=== PATIENT | male | born 1930 | race Caucasian/White ===

== ENCOUNTER 2017-06-18 17:23 | Inpatient (IN) | payer MEDICARE ==
[~2017-06-18] VITALS: Ht 177.8 cm; Wt 110.2 kg
--- NOTE | ~2017-06-18 | WRIGHTHP ---
[place], [place] PATIENT HISTORY AND PHYSICAL EXAM [id number] #: [id number] ROOM: 309 DOCTOR: AHMET PERAZA MD BIRTHDATE: [birth year] DOS: 06/19/2017 INITIAL PSYCHIATRIC EVALUATION. CHIEF COMPLAINT: "I'm not really certain why they sent me here." HISTORY OF PRESENT ILLNESS: This is an 87-year-old white male who is a resident of The [facility] in [place], [place], which is an assisted living facility. Apparently, the patient has had a significant decline and increased in behaviors over the last several weeks. This culminated recently with him eloping the facility and walking down a very busy highway with his walker. Staff had to intervene in attempt to bring him back. The patient has had a history of episodic behaviors that included extreme mood lability and agitation. At one point, most recently, the patient did enter the kitchen of the facility and began throwing pots and pans wildly in the kitchen area. He has become verbally and physically threatening to others and has been very combative and resistive to care. Family has been concerned about his decline both from a mood lability standpoint and increased depression standpoint. Family notes that he does tend to decompensate significantly with the change in seasons and his behavior has become so problematic that they are also looking for alternative placement for him. PAST MEDICAL HISTORY: Remarkable for benign prostatic hypertrophy, hyperlipidemia, hypertension, hypothyroidism, obesity and vitamin D deficiency. MENTAL STATUS EXAMINATION: This morning, the patient is alert and oriented to person, place and very approximate to time. He was able to recount to me the details leading up to his admission here, but is rather perplexed about the entire process. He does remember receiving information at the facility about me being his psychiatrist. He denies having previous psychiatric intervention. He does, however, report that he is having significant sleep problems with difficulty falling asleep, staying asleep, and dedicated local truck driver awakening. He also endorses anergia, anhedonia, hopeless, helpless feelings and at times crying spells. There is no significant hypomania or manish. There are no auditory or visual hallucinations noted. No delusions were voiced. No paranoia was present. Memory for the most part seems relatively intact with some mild time issues noted. DIAGNOSIS: Major depression, recurrent, rule out with psychotic features. PLAN: I will go ahead and start him on Cymbalta 30 mg at bedtime. He does endorse significant pain issues and states he has had at least 5 back operations that caused him a great deal of distress. He does endorse depressive symptomatology, so this should multitask the depression as well as the pain issues. The patient did enter the hospital on donepezil 5 mg at bedtime. I will discontinue this in lieu of Exelon patch 4.6 mg daily. I will gradually increase this as needed and as tolerated to its maximum dose of 13.3 mg daily. This should help improve and maintain ADLs, behaviors and cognitions. If needed, I will go ahead and augment this with Namenda. I will discuss the case further with the treatment team and manager social responsibility to determine whether or not [place], [place] PATIENT HISTORY AND PHYSICAL EXAM NAME: LUCILLEAHMET Cantrell UNIT #: [id number] ROOM: 309 DOCTOR: AHMET PERAZA MD BIRTHDATE: [birth year] he will return back to [facility] or if an alternative placement is required. We will engage him in individual and payton milieu activity, ultimately discharging then to the least restrictive environment when psychiatrically stable. AHMET PERAZA MD CM:HISPHYS:PATIENT HISTORY AND PHYSICAL EXAMINATION [id number] AHMET PERAZA MD 06/19/17 1049 interface
--- NOTE | ~2017-06-18 | DS ---
[place], [place] DISCHARGE SUMMARY NAME: AHMET ADKINS [facility] #: [id number] UNIT #: [id number] ROOM: 309 DOCTOR: PATRICIA OSWALD BIRTHDATE: [birth year] DOS: 06/20/2017 HISTORY OF PRESENT ILLNESS: He is an 87-year-old male who is a resident of an assisted living in [place]. He began to have a significant decline and an increase in behaviors over several weeks prior to being admission. He did elope from the facility and was walking down a very busy highway with his walker. Staff had to redirect him back to the facility. He did have a history of behaviors at the facility including extreme mood lability and agitation. He did, at one point, enter to the kitchen of facility and started to around. He was verbally and physically threatening to others and combative and resistive to care. Family was concerned about his decline in mood and also an increase in depression. He was sent to [facility] for medication stabilization and to rule out any organic factors. PAST MEDICAL HISTORY: BPH, hyperlipidemia, hypertension, hypothyroidism, obesity and vitamin D deficiency. SUMMARY OF HOSPITAL STAY: His Cymbalta was started at bedtime in order to treat pain that he was complaining of. He stated that he did have five back operations in the past and that he had pain related to that. He also reported that he did have some feelings of depression and the Cymbalta would be helpful for both the pain issues and for the depression. Exelon patch was started in lieu of Aricept and it was to be gradually titrated up to 13.3 in order to improve his ADLs, behavior and cognition. On June 20, he did suffer a fall and it was questionable whether or not he had a hip fracture. Imaging study showed a nondisplaced possible fracture and he was treated for pain until he could be evaluated by medical. Eventually, he was transferred to the medical floor for further treatment for his hip fracture. DISPOSITION: He was transferred to medical to treat his hip fracture. At the time of his discharge to the medical floor, he was alert, oriented to self, perhaps to place, not to time. His mood and affect were appropriate, but he did describe significant amount of pain. Please reconsult as if needed after he is treated medically. [place], [place] DISCHARGE SUMMARY NAME: AHMET ADKINS UNIT #: [id number] ROOM: 309 DOCTOR: PATRICIA OSWALD BIRTHDATE: [birth year] Patricia Oswald NP CM:NII [phone] PATRICIA OSWALD 06/21/172303 interface
--- NOTE | 2017-06-18 16:50 | NUR ---
ADMISSION ORDERS RECIEVED FROM DR. PERAZA TO ADMIT PT TO UNIT WITH DX BRIEF PSYCHOTIC DISORDER. HOME PSYCHIATRIC MEDICATIONS REVIEWED WITH DR. PERAZA, VERBAL ORDERS RECIEVED, READ BACK AND VERIFIED.
--- NOTE | 2017-06-18 17:00 | NUR ---
VERBAL CONSENTS FOR ADMISSION, MEDICATIONS, VISITOR/PHONE CALL RESTRICTIONS (LASHAUN STATES NO RESTRICTIONS, DECLINED TO SET UP A PASSWORD), WOUND/IDENTIFICATION PHOTOGRAPHY OBTAINED VIA TELEPHONE FROM PT'S DAUGHTER/POA LASHAUN GARCIA, WITNESSED BY 2ND RN YANET. COPIES OF POA/LIVING WILL/DNRCC PAPERWORK PROVIDED BY NURSING FACILITY, [facility] AND PLACED ON PT'S CHART. VISITATION POLICY AND RULES OF THE UNIT REVIEWED WITH DAUGHTER LASHAUN.
--- NOTE | 2017-06-18 17:03 | NUR ---
CALLED AND SPOKE TO EWELINA, MEDIA ASSOCIATE AT THE [facility], MADE AWARE DR. PERAZA WILL ADMIT PT, REQUESTED NURSE TO NURSE REPORT BE GIVEN PRIOR TO PT LEAVING THE FACILITY. EWELINA STATES NURSE BUSCH IS PASSING MEDICATIONS AND WILL CALL WITH REPORT WHEN FINISHED.
[2017-06-18] MEDS ORDERED: POTASSIUM CHLO20 ME4 PO (17:41)
[2017-06-18] MEDS ORDERED: OMEPRAZOLE20 M2 PO (17:47)
--- NOTE | 2017-06-18 17:47 | NUR ---
RECIEVED CALL FROM JO-ANN, NURSE AT THE [facility], RECIEVED NURSE TO NURSE REPORT ON PT AHMET ADKINS. JO-ANN STATES PT IS WILLING TO COME, STATES PT STATED "I KNOW I NEED HELP, I'M NOT SAFE." PT'S DAUGHTER AKIL EVANS WILL TRANSPORT PT PER FAMILY'S WISHES. NURSE STATES THEY WILL CALL THE UNIT WHEN PT IS LEAVING.
[2017-06-18] MEDS ORDERED: ALLOPURINOL100 MG PO (17:50)
[2017-06-18] MEDS ORDERED: Synthroid,Levo25 MCG PO (17:50)
[2017-06-18] MEDS ORDERED: VITAMIN D310000 UNI1 PO (17:51)
[2017-06-18] MEDS ORDERED: B121000 MCG/1 IM (17:52)
[2017-06-18] MEDS ORDERED: LASIX40 MG PO (17:53)
[2017-06-18] MEDS ORDERED: COLACE100 MG PO (17:53)
[2017-06-18] MEDS ORDERED: TYLENOL EXTRA500 MG PO (17:57)
[2017-06-18] MEDS ORDERED: DULE1ARO1 INH (17:58)
[2017-06-18] MEDS ORDERED: FLOMAX0.4 MG PO (17:58)
[2017-06-18] MEDS ORDERED: NEURONTIN600 MG PO (17:58)
[2017-06-18] MEDS ORDERED: PAXIL30 M2 PO (17:59)
[2017-06-18] MEDS ORDERED: ARICEPT5 M1 PO (17:59)
[2017-06-18] MEDS ORDERED: COUMADIN3 M1 PO (18:00)
[2017-06-18] MEDS ORDERED: PERCOCET 7.5-31 EACH PO (18:00)
[2017-06-18] MEDS ORDERED: CYCLOBENZAPRINE5 M3 PO (18:01)
[2017-06-18] MEDS ORDERED: NYSTATIN1 EAC5 T (18:01)
[2017-06-18] MEDS ORDERED: GUAIFENESIN600 MG PO (18:02)
[2017-06-18] MEDS ORDERED: DULCOLAX5 M1 PO (18:02)
[2017-06-18] MEDS ORDERED: PROAIR HFA8.5 GM INH (18:04)
[2017-06-18] MEDS ORDERED: SILTUSSIN100 MG/52 PO (18:05)
[2017-06-18] MEDS ORDERED: TOPICORT60 G1 T (18:06)
--- NOTE | 2017-06-18 23:16 | NUR ---
SPOKE WITH POA. REVIEWED ADMISSION PROCESS. POA UPDATED STAFF ON CLIENTS HEALTH AND HABITS. WILL COME IN TOMORROW TO SIGN PAPERS
--- NOTE | 2017-06-19 00:55 | NUR ---
AHMET ADKINS a 87 year old M admitted via stretcher from the ADMITTING as a emergency 72 hr. hold admission. Arrived on unit at 0055AM. ALLERGIES: BACTRIUM. Vital signs are: 97.4-84-16 126/88. CLIENT IS PINK SLIPPED AND UNABLE TO SIGN THE FOLLOWING FORMS with stated understanding: Authorization For The Release of Medical Information, Clothing List, Consent to Voluntary Admission and Hospitalization, Consent and Release Forms/Receipt of Rights, Acknowledgement of Advance Directive Information, Behavioral Health Consent Form, and Informed Consent of Medications. Admitted under the services of Dr. KARMEN DUNCAN,AHMET. A search was conducted and hazardous articles were removed. Client was oriented to the unit. CLIENT DENIES BECOMING COMBATIVE. STATES I AM BORED THERE. THEY MAKE ME SIT ALL THE TIME BECAUSE THEY ARE AFRAID I MIGHT FALL. I LIKE TO BE ACTIVE AND DO THINGS. I EVEN OFFERED TO CUT THE GRASS AND THEY SAID NO. I JUST LIKE TO KEEP BUSY. I DON'T NEED TO BE HERE BUT OK. CLIENT ATE 1/2 SANDWICH, FRUIT, COTTAGE CHEESE, MARK CRACKERS, PEANUT BUTTER, GRAEME SLY. CLIENT GAIT STEADY WITH WALKER. DENIA BROWN
[2017-06-19 01:01] VITALS: BP 126/88
--- NOTE | 2017-06-19 01:20 | NUR ---
DR RODRIGUEZ NOTIFIED OF PTS ADMISSION, & MEDICAL CONSULT. HE STATE TO PUT CONSULT UNDER DR TALITA PANDEY.
--- NOTE | 2017-06-19 01:55 | NUR ---
DR RODRIGUEZ ON UNIT TO SEE PT FOR MEDICAL CONSULT.
[2017-06-19] MEDS ORDERED: LASIX80 MG PO (02:11)
--- NOTE | 2017-06-19 05:13 | NUR ---
NOT SLEEPING WELL. TOO LATE FOR SLEEPING PILL. CLIENT UNDERSTANDING
--- NOTE | 2017-06-19 06:23 | NUR ---
C/O 07/23 NECK AND BACK PAIN. PERCOCET GIVEN PER REQUEST. CLIENT ARGUMENTATIVE THIS MORNING ABOUT HAVING TO BE HERE AND NOT BEING ABLE TO SLEEP. TRIED TO REMIND HIM THAT HE REFUSED THE SLEEPING PILL. CONTINUES TO ARGUE ABOUT BEING HERE AND NOT BELONGING HERE. GETTING DRESSED TO GO TO DINING ROOM.
--- NOTE | 2017-06-19 06:49 | NUR ---
LAB HERE. INFORMED THEM OF NEW LABS ORDERERD FOR THIS MORNING. STATES THEY WILL GET THEM NOW
[2017-06-19 07:58] LABS: INTERNATIONAL NORM RATIO 2.3 (2.0-3.5)
[2017-06-19 08:15] VITALS: BP 116/65
--- NOTE | 2017-06-19 08:30 | NUR ---
DR. PERAZA HERE WITH PT AT THIS TIME.
[2017-06-19 08:33] LABS: VITAMIN D, 25-HYDROXY 47.1 ng/mL (30-100)
--- NOTE | 2017-06-19 09:00 | NUR ---
PT STATED TO MILIEU "I'M HERE TO TALK TO DR. PERAZA SO I CAN GET OUT OF HERE." REMINDED PT HAD JUST MET WITH DR. PERAZA, REASON FOR ADMISSION WAS EXPLAINED TO PT BY THE DOCTOR. PT STATES "OH OKAY."
--- NOTE | 2017-06-19 09:15 | NUR ---
PT STATES TO THIS NURSE "PLEASE MAKE SURE THE DOCTOR MEETS WITH ME." PT REMINDED AGAIN HE HAD MET WITH DR. PERAZA THIS MORNING. PT STATES "WELL IT'S REAL IMPORTANT THAT HE MEETS WITH ME SO I CAN GET OUT OF HERE." AGAIN EXPLAINED TO PT REASON FOR ADMISSION AND THAT DR PERAZA HAD MET WITH HIM AND EXPLAINED THE SAME. PT CONTINUES TO DEMAND TO SEE DR. PERAZA. DR. PERAZA STILL ON UNIT, MET WITH PT AGAIN AND EXPLAINED THE REASON FOR ADMISSION AND MEDICATION CHANGES. PT VERBALIZED UNDERSTANDING BUT STATES "YOU KNOW MY BIG GOAL IS TO GET OUT OF HERE ELISABETH. THIS WAS A MISUNDERSTANDING, I WAS JUST GOING FOR A WALK AND THAT GIRL TOLD HER MOTHER A STORY TO GET ME HERE."
--- NOTE | 2017-06-19 11:00 | NUR ---
Dr. Sanchez requested SW check with [facility] to see if Pt was able to return or if other placement was to be found. Dr. Sanchez stated that Pt had few memory gaps this morning back can turn into a different person in the evening. Dr. Sanchez wants to see how Pt this evening. Pt recalled for Dr. Sanchez when he threw pots and pans in the assisted living's kitchen. SW will contact the [facility] to see what was the plans are.
--- NOTE | 2017-06-19 11:19 | NUR ---
JUN called the [facility] ; spoke with Director Ly. Ly spoke with family Saturday and yesterday about facility not longer able to meet Pt's needs. Pt has been at facility for 3 years. Family in agreement for Pt to be palced in a NH for his safety. Ly will make referrals to Kenneth at [facility], Aurelia at the [facility] and [facility]. JUN will complete the PASRR once Dr. Alvarado's assessment is tuped. Pt was a security director. Pt's brother worked at the [employer]'s office. Ly reports that Family is very nice and works well with the staff to make sure pt's needs are met. Jun will send inforation to these facilities once the reports are typed from the Drs. Ly will let JUN know of the outcome of her calls to these faclities. KATE Ferguson is first but works as RN and 2nd is Nina is readily available by phone.
--- NOTE | 2017-06-19 11:20 | NUR ---
PT'S RIOSTHER/KATE GARCIA ON UNIT, ALL ADMISSION PAPERWORK REVIEWED WITH DAUGHTER AND SIGNATURES OBTAINED. REVIEWED MEDICATIONS WITH DAUGTHER. QUESTIONS ANSWERED. PROVIDED FITTER MECHANIC'S NAME AND PHONE NUMBER TO ASSIST FAMILY WITH PLACEMENT QUESTIONS.
--- NOTE | 2017-06-19 11:40 | NUR ---
PHYSICAL THERAPY PAtient evaluated on 3, full evaluation to follow. PAtient (I) all functional mobility. No PT skills/needs. PAtient is low complexity via chart review, tests and evaluation: 73216. Thak you for this referral. Desi Pineda,PT
--- NOTE | 2017-06-19 11:41 | NUR ---
Trivia/Riddles/Think Fast Patient chooses on of these card,reads it outloud for other patients to guess/answer. Patient was encouraged to join this group but patient refused stating he wasnt well, hed been up all night,he had too many things to think about... AT encouraged and educated patient on the benefits for him to join group such as socializing, helping him focus. Patient continued to refuse all goups. AT will attempt again this afternoon
--- NOTE | 2017-06-19 12:49 | NUR ---
PT IS ALERT AND ORIENTED TO PERSON, PLACE AND TIME. SOME ST MEMORY GAPS NOTED. RESPIRATIONS EASY ON ROOM AIR. MOOD IS DEPRESSED, AFFECT IS FLAT. SPEECH IS WNL AND COHERENT, ABLE TO MAKE NEEDS KNOWN. PT DENIES HALLUCINATIONS, NO RESPONSE TO INTERNAL STIMULI NOTED. PT DENIES SI/HI. NO DELUSIONS OR PARANOIA NOTED. PT IS CALM AND COOPERATIVE WITH STAFF, MEDICATION COMPLIANT, HOWEVER; PT HAS REFUSED GROUP ACTIVITY SESSIONS THIS AM DESPITE ENCOURAGEMENT, THIS NURSE WILL ATTEMPT TO ENGAGE PT IN INDIVIDUAL THERAPY AND CONTINUE TO ENCOURAGE GROUP ATTENDANCE. PT IS GUARDED AND REPEATEDLY STATES TO STAFF "I DON'T NEED TO BE HERE. I WANT TO GO HOME." PT IS AMBULATORY WITH STEADY GAIT, INDEPENDENT WITH ADLS AND TOLIETING. GOOD APPETITE WITH ADEQUATE FLUID INTAKE NOTED. NO DISTRESS. Q15 MIN SAFETY CHECKS MAINTAINED, REFER TO [facility] FLOWSHEET FOR SPECIFIC MONITORING.
--- NOTE | 2017-06-19 14:00 | NUR ---
JULIA JESUS TREAD BOOKER WITH HOSPITALIST GROUP HERE TO SEE PT AT THIS TIME, REVIEWED PT'S PMH INCLUDING DX OF AFIB AND HX OF PE, MADE AWARE OF COUMADIN DOSE 3.5MG FOR TONIGHT AND PT/INR RESULTS FROM THIS AM.
--- NOTE | 2017-06-19 14:31 | NUR ---
Painting/Positive Traits This group consisted of painting an Emoji(4 different faces) suncatcher. Tried to encourage patient x2 to join group. Patient refused,he was tired. Explained to patient what we were doing in group and educated patient on getting out of his room and socializing with other patients and the benifits for him doing this. Patient still refused.
[2017-06-19 16:00] VITALS: BP 136/84
--- NOTE | 2017-06-19 17:35 | NUR ---
1600 - THIS NURSE AND HOGSHEAD PRESS OPERATOR SREE IN QUIET ROOM COMPLETING DISCHARGE INSTRUCTIONS WITH ANOTHER PATIENT WHEN A LOUD "THUD" WAS HEARD FROM THE NEXT ROOM OVER. THIS NURSE, JUN BALBUENA, RN MEGHNA AND FERN SIDDIQUI IMMEDIATELY RESPONDED TO ROOM 309-1. UPON ENTRANCE TO THE ROOM, BATHROOM DOOR WAS OBSERVED TO BE CLOSED AND THIS PT'S HAND COULD BE SEEN UNDER THE DOOR. UPON OPENING THE DOOR PT WAS OBSERVED TO BE LAYING ON HIS RIGHT SIDE, RIGHT SHOULDER UNDER HIS TORSO, PT HOLDING HIS HEAD UP OFF THE FLOOR. PT NOTED TO BE UNDRESSED FROM THE WAIST DOWN, STATES "I WENT TO THE BATHROOM AND I SPILLED ON THE FLOOR. I GOT UP AND TRIED TO CLEAN IT UP AND I SLIPPED." PT C/O NECK AND BACK PAIN, ADMITS TO HITTING HEAD, ALERT AND ORIENTED X4 PER PT'S BASELINE. PERRLA. SPEECH WNL AND PER PT'S BASELINE. PT DENIES FEELING DIZZY PRIOR TO THE FALL. VITALS OBTAINED AT THIS TIME, 97.4-94-22-136/84-97% ROOM AIR. APARTMENT MAINTENANCE RADHA ON UNIT, DIRECTED MULE OPERATOR MARIZOL TO ALERT THE HOSPITALIST TEAM. MEGHNA RN STAYED WITH PT WHILE THIS NURSE COMMUNICATED WITH MULE OPERATOR TO ENSURE HOSPITALIST TEAM WOULD BE COMING TO ASSESS PT PRIOR TO MOVING THE PATIENT. 1605 - DR. VAZQUEZ ON UNIT AND ASSESSING PT. ORDERS FOR CERVICAL COLLAR TO BE APPLIED AND STAT CT STUDIES OF HEAD AND CERVICAL SPINE. STATES NOT TO MOVE THE PT UNTIL COLLAR IS APPLIED. CALL PLACED TO ER AND LEARNING SUPPORT AIDE DONALD TO MAKE AWARE AND REQUEST COLLAR BE BROUGHT TO THE UNIT. 1610 - DR. NUNEZ AND DR. COMER ON UNIT AND ASSESSING PT. 1613 - DR. SCOTT ON UNIT AND ASSESSING PATIENT. MADE AWARE PT HAS A HX OF PREVIOUS BACK SURGERIES. 1620 - INDRA, NURSING LEARNING SUPPORT AIDE ON UNIT WITH CERVICAL COLLAR FROM ER. DR. SCOTT REQUESTS BACK BOARD, ARTUR SHIRLEY OFF UNIT AT THIS TIME TO OBTAIN STRETCHER AND BACK BOARD FROM ER. 1625 - BACK BOARD AND STRETCHER ARRIVED ON UNIT WITH MILIEU AND POLICY AND PLANNING MANAGER. DR. SCOTT AND RESIDENTS APPLIED CERVICAL COLLAR AND BACK BOARD AT THIS TIME, NURSING LEARNING SUPPORT AIDE, THIS RN AND POLICY AND PLANNING MANAGER ASSISTED TEAM PT WAS LIFTED USING BACK BOARD ONTO STRETCHER FOR TRANSPORT TO RADIOLOGY. 1645 - PT OFF UNIT AT THIS TIME TO RADIOLOGY FOR CT SCANS, ESCORTED BY HOSPITALIST TEAM DOCTORS. 1650 - CALL PLACED BY THIS NURSE TO PT'S DAUGHTER/KATE GARCIA TO MAKE AWARE OF THE ABOVE. MADE AWARE CT IS BEING DONE AT THIS TIME AND STAFF WILL NOTIFY OF RESULTS. DAUGHTER VERBALIZED UNDERSTANDING, STATED THANK YOU FOR THE CALL. 1700 - PT BACK ON UNIT AT THIS TIME ESCORTED BY DR. VAZQUEZ AND DR. COMER, WHO STATE TO LEAVE PT POSITIONED ON BACK BOARD WITH CERVICAL COLLAR IN PLACE UNTIL FURTHER ORDERS ARE RECIEVED PENDING RESULTS OF THE CT SCANS. DR. VAZQUEZ STATES THEY WILL RETURN TO THE UNIT SHORTLY. THIS NURSE REMAINS WITH PT 1:1 AT THIS TIME TO ENSURE IMMOBILIZATION OF SPINE AND SAFETY.
--- NOTE | 2017-06-19 18:06 | NUR ---
SHIFT CHART CHECK COMPLETED.
--- NOTE | 2017-06-19 18:20 | NUR ---
DR. VAZQUEZ ON UNIT, AFTER REVIEW OF CT OF HEAD AND SPINE, BOTH RESULTS ARE NEGATIVE, DR. VAZQUEZ CAME TO UNIT, ASSISTED THIS NURSE IN REMOVING CERVICAL COLLAR AND BACK BRACE. DR. VAZQUEZ FURTHER ASSESSED PT'S C/O PAIN AND RANGE OF MOTION. STATES TO LEAVE PT ON GOURNEY HE WILL BE ORDERING MORE XRAYS. DR. VAZQUEZ STATES OK TO GIVE ROUTINELY SCHEDULED DOSE OF COUMADIN AND PRN PERCOCET. WITNESSED BY 2ND RN MEGHNA.
--- NOTE | 2017-06-19 18:24 | NUR ---
PRN PERCOCET 7.5-325 ONE TAB PO GIVEN AT THIS TIME FOR C/O NECK, BACK AND SHOULDER PAIN RATED LEVEL 10/10 ON PAIN SCALE. ROUTINELY ORDERED COUMADIN GIVEN AT THIS TIME WELL.
--- NOTE | 2017-06-19 18:24 | NUR ---
VM from [facility]/KATE Wood introducing herself and will answer any questions SW has regardin placement or Pt.
--- NOTE | 2017-06-19 18:26 | NUR ---
JUN received call from Ly Santoyo at [facility] that that she received calls back from Aurelia at the [facility] that are interested in Pt and have male beds. Ly will be ntoifiying family and giving information so family can tour facilities. JUN informed Ly that Pt had fallen in beathroom and was receiving xrays. Pt was trying to pick up attendant a paper towel that he dropped and fall hitting head on door frame to bathroom.
--- NOTE | 2017-06-19 18:30 | NUR ---
CALL PLACED TO PT'S DAUGHTER/POA LASHAUN LUCASKYLEE TO MAKE AWARE OF NEGATIVE CT RESULTS. ALSO MADE AWARE DR. VAZQUEZ ORDERED FURTHER XRAYS, POA VERBALIZED UNDERSTANDING.
--- NOTE | 2017-06-19 18:38 | NUR ---
ESCORT ON UNIT AT THIS TIME TO TAKE PT TO RADIOLOGY. TICKET TO RIDE SENT WITH PT.
--- NOTE | 2017-06-19 19:18 | NUR ---
FALL RISK ASSESSMENT COMPLETED S/P FALL, UPDATED CARE PLAN, FALLING STAR PLACED ON DOOR, PT WEARING YELLOW SOCKS AND YELLOW ARM BAND.
--- NOTE | 2017-06-19 21:01 | NUR ---
RESIDENT EXCHANGE ENGINEER PHONE NUMBER CALLED REGARDING CLIENT XRAY TO RIGHT HIP. NO ANSWER AT THIS TIME
--- NOTE | 2017-06-19 21:08 | NUR ---
HOSPITALIST # PHONE CALLED. DR. DEL ANGEL ANSWERED CALL. DR. DEL ANGEL UPDATED ABOUT XRAY OF RIGHT HIP. DR. DEL ANGEL WITH ORDER TO CONSULT DR. DAWSON, ORTHOPEDIC.
--- NOTE | 2017-06-19 21:13 | NUR ---
DR. DAWSON CALLED FOR CONSULT OF CLIENT. THIS NURSE REACHED ANSWERING SERVICE. THIS NURSE UPDATED ANSWERING SERVICE WITH CLIENT XRAY OF RIGHT HIP AND ORDER FROM DR. DEL ANGEL TO CONSULT DR. DAWSON. ANSWERING SERVICE LET THIS NURSE KNOW THAT DR. DAWSON WILL BE CONSULTED AND IF UNABLE TO SEE PATIENT MALINDA WILL SEE PATIENT IN THE MORNING
--- NOTE | 2017-06-19 22:33 | NUR ---
THIS NURSE ATTEMPTED TO CALL LYSSA ORNELAS WITH NO ANSWER. THIS NURSE CALLED DAUGHTER AKIL. DAUGHTERAKIL IS AWARE OF XRAY RESULTS AND CONSULT WITH DR. DAWSON. DAUGHTERAKIL STATED "THANK YOU FOR CALLING AND I WILL UPDATE THE REST OF MY FAMILY".
[2017-06-19 22:57] VITALS: BP 128/80
--- NOTE | 2017-06-20 01:15 | NUR ---
PATIENT WITH COMPLAINT OF BACK PAIN. MEDICATED WITH WITH PERCOCET WITH EFFECTIVE RESULTS
--- NOTE | 2017-06-20 02:19 | NUR ---
24 HR chart check completed.
--- NOTE | 2017-06-20 05:28 | NUR ---
B:AGGRESSION, COMBATIVE BEHAVIOR I: THERAPEUTIC COMMUNICATION, 1:1 R: I DON'T WANT TO BE HERE P: HELP TO FIND COPING SKILLS TO DECREASE AGGRESSION, COMPLY WITH MEDICATIONS, PARTICIPATE IN GROUPS
--- NOTE | 2017-06-20 06:33 | NUR ---
PATIENT SLEPT > 7 HOURS. TURNED AND REPOSITIONED SELF FOR PRESSURE RELIEF AND COMFORT
[2017-06-20 07:43] VITALS: BP 143/70
--- NOTE | 2017-06-20 07:45 | NUR ---
RECIEVED CALL FROM PT'S DAUGHTER AKIL EVANS, AKIL PROVIDED HER CELL PHONE NUMBER, REQUESTS FOR AKIL TO BE THE FIRST CONTACT HER SISTER LASHAUN WORKS IN A DENTAL OFFICE AND WILL BE UNAVAILABLE TO TAKE PHONE CALLS THROUGHOUT THE DAY.
[2017-06-20 07:50] LABS: BASO % 0.6 % (0.0-1.0); EOS # 0.1 10*3/uL (0.0-0.4); EOS % 1.6 % (1.0-4.0); HEMATOCRIT 39.4 % (42.0-52.0); HEMOGLOBIN 13.4 g/dl (14.0-18.0); LYMPH # 1.6 10*3/uL (1.3-4.4); LYMPH % 32.1 % (27.0-41.0); MEAN CELL VOLUME 103.1 fl (80.0-94.0); MEAN CORPUSCULAR HGB 35.1 pg (27.0-31.0); MEAN PLATELET VOLUME 10.6 fl (9.6-12.3); MONO # 0.4 10*3/uL (0.1-1.0); MONO % 7.1 % (3.0-9.0); NEUT % 58.4 % (47.0-73.0); PLATELET COUNT AUTOMATED 136 10*3/uL (130-400); RED BLOOD COUNT 3.82 10*6/uL (4.50-5.90); RED CELL DISTRI WIDTH 12.9 % (0-14.5); WHITE BLOOD COUNT 5.1 10*3/uL (4.8-10.8)
[2017-06-20 08:19] LABS: INTERNATIONAL NORM RATIO 2.4 (2.0-3.5)
[2017-06-20 08:20] LABS: ALBUMIN 3.2 gm/dl (3.1-4.5); ALKALINE PHOSPHATASE 155 U/L (45-117); BUN 13 mg/dl (7-24); CHLORIDE 104 mmol/L (98-107); CHOLESTEROL 168 mg/dL (<200); CREATININE 1.07 mg/dL (0.70-1.30); HDL CHOLESTEROL 38 mg/dl (40-60); LDL CHOLESTEROL 89 mg/dL (9-159); POTASSIUM 4.1 mmol/L (3.5-5.1); SGOT/AST 38 IU/L (3-35); SGPT/ALT 32 U/L (12-78); SODIUM 143 mmol/L (136-145); TOTAL PROTEIN 6.9 gm/dL (6.4-8.2); TRIGLYCERIDES 204 mg/dl (<150); VLDL CHOLESTEROL 41 mg/dL (6-40)
--- NOTE | 2017-06-20 08:38 | NUR ---
RECIEVED CALL FROM DR. DAWSON'S OFFICE THIS AM STATING THEY RECIEVED CONSULT VIA ANSWERING SERVICE LAST EVENING BUT STATE DR. DAWSON IS OUT OF THE OFFICE FOR THE WEEK WITH NO ALTERNATE COVERAGE AVAILABLE. CALL PLACED TO [phone], SPOKE TO DR. NUNEZ, MADE AWARE OF XRAY RESULTS AND THAT DR. DAWSON IS OUT OF THE OFFICE. STATES HE WILL DISCUSS WITH DR. SCOTT.
--- NOTE | 2017-06-20 09:40 | NUR ---
RECIEVED CALL FROM DR. DUFFY QUESTIONING IF PT HAS A PACEMAKER, PER PT'S CHART, NO DOCUMENTED PACEMAKER NOTED, PT DENIES HAVING PACEMAKER. CALL PLACED TO PT'S POA/GAUDENCIO EVANS WHO STATES "NO HE DOES NOT HAVE A PACEMAKER." DR. DUFFY MADE AWARE. MRI ORDER RECIEVED. GAUDENCIO BARNARD AWARE OF NEW ORDER FOR MRI. PT IN BED AT THIS TIME, GIVEN PORTABLE CALL CARROLL, CALL CARROLL AND FLUIDS WITHIN REACH, BED ALARM IN PLACE AND AUDIBLE.
--- NOTE | 2017-06-20 10:59 | NUR ---
RECIEVED RADIOLOGY MRI PROCEDURE PRE-SCREENING FORM, QUESTIONARE WAS COMPLETED VIA TELEPHONE WITH PT'S RIOSTHER/BEN EVANS AND FAXED TO RADIOLOGY AT THIS TIME.
--- NOTE | 2017-06-20 12:08 | NUR ---
DR. SCOTT, DR. NUNEZ, DR. VAZQUEZ AND MEDICAL STUDENT ON UNIT TO SEE PT AT THIS TIME. MADE AWARE WE ARE AWAITING MRI TO BE DONE.
--- NOTE | 2017-06-20 12:30 | NUR ---
CALL PLACED TO MRI, SPOKE TO YUVAL, STATES THEY WILL BE UP TO GET PT FOR MRI AROUND 1PM.
--- NOTE | 2017-06-20 13:06 | NUR ---
PT IS ALERT AND ORIENTED TO PERSON, PLACE, APPROXIMATE TIME. SOME ST/LT MEMORY DEFICITS NOTED AT TIMES. RESPIRATIONS EASY ON ROOM AIR. MOOD IS DEPRESSED, AFFECT IS FLAT. SPEECH IS WNL AND COHERENT, ABLE TO MAKE NEEDS KNOWN. PORTABLE CALL CARROLL PROVIDED AND IS IN REACH OF PATIENT. PATIENT DEMONSTRATED ABILITY TO USE CALL CARROLL. ENCOURAGED TO USE CALL CARROLL FOR ASSISTANCE PRIOR TO ATTMEPTING TO GET OOB. PT VERBALIZED UNDERSTANDING. BED ALARM IN PLACE, ACTIVE AND AUDIBLE. PT REMAINS IN BED AWAITING MRI RESULTS. FAMILY UPDATED. PT DENIES HALLUCINATIONS, NO RESPONSE TO INTERNAL STIMULI NOTED. PT DENIES SI/HI. NO PARANOIA/DELUSIONS NOTED. MEDICATION COMPLIANT WITHOUT DIFFICULTY. PT BEING MEDICATED WITH PRN PERCOCET Q6H PRN PT WAS TAKING AT HOME FOR C/O BACK AND SHOULDER PAIN, PT STATES "I FEEL LIKE I GOT HIT BY A 2X4." DR. SCOTT AWARE OF PT'S C/O PAIN AND STATES TO CONTINUE PRN PERCOCET ORDERED WHILE WE AWAIT MRI RESULTS. STAFF ASSISTANCE PROVIDED FOR ADLS, FEEDS SELF, DISPLAYS GOOD APPETITE WITH ADEQUATE FLUID INTAKE. NO DISTRESS NOTED. Q15 MIN SAFETY CHECKS MAINTAINED, REFER TO [facility] FLOWSHEET FOR SPECIFIC MONITORING.
--- NOTE | 2017-06-20 13:23 | NUR ---
PT ASSISTED TO [facility]AVI WITH ASSISTANCE OF MRI TECHS, ESCORT SERVICE, THIS NURSE AND JUN BALBUENA AND IS BEING ESCORTED TO MRI AT THIS TIME WITH TICKET TO RIDE.
--- NOTE | 2017-06-20 14:30 | NUR ---
PT RETURNED FROM MRI WITHOUT INCIDENT. ASSISTED BACK TO BED, BED LINENS CHANGED AND HYGIENE CARE PROVIDED.
--- NOTE | 2017-06-20 15:44 | NUR ---
CALL PLACED TO [phone], SPOKE TO DR. NUNEZ, MADE AWARE OF MRI RESULTS.
--- NOTE | 2017-06-20 16:15 | NUR ---
RECIEVED CALL FROM DR. VAZQUEZ STATING PT WILL NEED TO BE TRANSFERED OUT TO [facility] D/T MRI RESULT. CALL PLACED TO RADHA GROUNDING ENGINEER TO MAKE AWARE, JAYLENE BARAHONA MADE AWARE.
--- NOTE | 2017-06-20 16:20 | NUR ---
CALL PLACED TO PT'S RIOSTHER/KATE EVANS TO MAKE AWARE OF HOSPITALIST'S TEAM'S RECOMMENDATION TO TRANSFER PT TO [facility] FOR [facility]THOPA[facility] TREATMENT. GAUDENCIO STATES SHE WILL DISCUSS WITH PT'S OTHER RIOSTHER/KATE GARCIA.
--- NOTE | 2017-06-20 16:30 | NUR ---
RECIEVED CALL FROM DR. VAZQUEZ WHO STATES AN OUT OF FACILITY TRANSFER IS NO LONGER NEEDED AT THIS TIME DR. DAWSON WILL BE RETURNING EARLY TO TREAT THIS PATIENT TOMORROW. DR. VAZQUEZ STATES HE WILL BE TRANSFERRED TO THE MEDICAL FLOOR WITH DIAGNOSIS INTERTROCHANTER FRACTURE UNDER THE SERVICES OF DR. SCOTT. CALLS PLACED TO RADHA PEST CONTROLLER, [facility] MANNEQUIN WIG MAKER, DR. PERAZA AND PT'S DAUGHTER AKIL EVANS TO MAKE AWARE.
--- NOTE | 2017-06-20 16:39 | NUR ---
CALL PLACED TO [phone], SPOKE TO DR. NUNEZ, [facility] TO HOLD COUMADIN TONIGHT.
[2017-06-20] MEDS ORDERED: DULOXETINE HCL30 MG PO (16:55)
[2017-06-20] MEDS ORDERED: RIVASTIGMINE1 EACH T (16:55)
[2017-06-20] MEDS ORDERED: NAMENDA-5 PO (16:55)
[2017-06-20] MEDS ORDERED: LACTULOSE20 GM/30 M PO (16:55)
[2017-06-20] MEDS ORDERED: PALIPERIDONE ER3 MG PO (16:55)
--- NOTE | 2017-06-20 17:18 | NUR ---
PT DISCHARGED AT THIS TIME TO [facility] 5TH FLOOR ROOM 508-2 WITH DX INTERTROCHANTERIC FRACTURE OF THE RIGHT FEMUR UNDER THE SERVICES OF DR. SCOTT. PT WAS ESCORTED TO 5TH FLOOR VIA BED BY THIS NURSE AND JUN THEODORE. ALL DISCHARGE INSTRUCTIONS AND MEDICATION LIST PROVIDED TO 5TH FLOOR. DNRCC AND POA PAPERWORK PROVIDED TO 5TH FLOOR. NURSE TO NURSE REPORT GIVEN TO [facility] NURSE ON 5TH FLOOR PRIOR TO TRANSFER. ALL PERSONAL BELONGINGS WERE SENT WITH THE PATIENT. PT IN STABLE CONDITION AT TIME OF TRANSFER, IN GOOD SPIRITS, JOKING WITH STAFF.
--- NOTE | 2017-06-20 17:39 | NUR ---
Pt discharged to medical floor due to fracture of right hip. Discharge papers will be sent to [facility].
[2017-06-24 08:06] LABS: NEURONTIN (GABAPENTIN) 8.6 ug/mL (4.0-16.0)
== END 2017-06-20 17:00 | disposition short-term general hospital (02) | DRG 885 ==
LOC: 3N 17:23
PROVIDERS: Hospitalist; Internal Medicine; Registered Nurse; ADMIT Psychiatry & Neurology Psychiatry
DX: F33.9 Major depressive disorder, recurrent, unspecified (principal); I48.0 Paroxysmal atrial fibrillation; N40.0 Benign prostatic hyperplasia without lower urinary tract symptoms; E78.5 Hyperlipidemia, unspecified; I10 Essential (primary) hypertension; E03.9 Hypothyroidism, unspecified; E66.9 Obesity, unspecified; W18.30XA Fall on same level, unspecified, initial encounter; E55.9 Vitamin D deficiency, unspecified; Z68.33 Body mass index [BMI] 33.0-33.9, adult; Z79.01 Long term (current) use of anticoagulants; Z86.711 Personal history of pulmonary embolism; Z88.2 Allergy status to sulfonamides; Z88.8 Allergy status to other drugs, medicaments and biological substances; Z79.899 Other long term (current) drug therapy; Y93.89 Activity, other specified; Y92.89 Other specified places as the place of occurrence of the external cause; Y99.8 Other external cause status

== ENCOUNTER 2017-06-20 17:18 | Inpatient (IN) | payer MEDICARE ==
[~2017-06-20] VITALS: Ht 180.3 cm; Wt 108.9 kg
--- NOTE | ~2017-06-20 | O ---
[place], [place] OPERATIVE NOTE NAME: AHMET ADKINS [facility] #: [id number] UNIT #: [id number] ROOM: 508 DOCTOR: BRADY TAN DO BIRTHDATE: [birth year] DOS: 06/21/2017 PREOPERATIVE DIAGNOSIS: Right hip intertrochanteric fracture. POSTOPERATIVE DIAGNOSIS: Right hip intertrochanteric fracture. PROCEDURE: Trochanteric nail fixation of the right hip intertrochanteric fracture. SURGEON: Brady Tan DO. GENERAL SCRAP WORKER: Jem. SECOND BACKER UP: Jacobo, ANESTHESIA: Quinones, SUSHI CHEF, spinal. INDICATIONS: The patient is an 87-year-old male who is reported to have had an unwitnessed fall on 06/20/2017. MRI indicated a nondisplaced intratrochanteric fracture of the right hip. The patient had pain and inability to ambulate. The risks and benefits of the procedure were explained to the patient's daughter who is his power of litigation attorney associate. Preoperative labs and x-rays were obtained including preoperative medical clearance. The patient is noted to routinely take Coumadin and this was discontinued. He has been receiving FFP to obtain an acceptable PT/INR. PROCEDURE IN DETAIL: The right hip was marked. The patient was brought to the operative suite. A spinal anesthetic was performed by Anesthesia. The patient was placed supine on the fracture table. The patient received Ancef 2 grams IV piggyback. The C-arm was utilized to evaluate the fracture site in multiple planes. The right lower extremity was prepped and draped in the usual orthopedic fashion. A timeout was performed. The greater trochanter was identified and proximal to this area, the incision was made longitudinally. Self-retaining retractors were utilized. Electrocautery was used to maintain hemostasis. The adipose tissue was spread down to the level of the fascia. The fascia was divided in a longitudinal fashion. The greater trochanter was palpated and entered with a partially threaded K-wire. This was adjusted to an appropriate position in both an AP and lateral position. The soft tissue protector and the initial 17.5 mm reamer was placed over the K-wire. This was advanced to the level of the lesser trochanter. The instrumentation was removed. The #11 trochanteric nail was used to enter the site. This was noted to have difficulty advancing. A ball-tip guidewire was placed and initial reaming was performed. This was removed and the 11 x 130 degree angle x 170 mm length TFN troch nail was placed through the greater trochanter and passed the fracture site. The positioning was evaluated under C-arm in multiple planes. When this was found to be adequate, the cannula system was placed at a 130 degree angle for the helical blade. The skin was injected with Marcaine 0.5% with epinephrine. A longitudinal incision was made. Subcutaneous tissue was spread down to the level of the bone. The cannulas were advanced to the bone. The partially threaded K-wire was placed through the cannulated system and [place], [place] OPERATIVE NOTE NAME: LUCILLEAHMET Cantrell Óscar UNIT #: [id number] ROOM: [facility] DOCTOR: BRADY TAN DO BIRTHDATE: [birth year] advanced through the neck and into the head of the femur. The positioning was evaluated under C-arm in multiple planes. When this was found to be adequate, the length was measured. The reamer was set at 100 and advanced over the guidewire. This was followed by placement of a 100 mm length, T1 helical blade, which was advanced into position. This was evaluated under C-arm in multiple planes. The set screw was tightened proximally. The cannulated system was removed. The triple cannulated system was advanced through the appropriate guide hole to lock the clement distally. Skin was injected with Marcaine. The same incision was used as for the helical blade. The skin section of the soft tissue was spread down to bone. The cannulas were advanced to the bone. A calibrated drill was placed from lateral to medial through this cannulated system. The length was measured. A 40 mm 5.0 mm distal locking screw was placed from lateral to medial through the trochanteric nail. All positions were evaluated under C-arm at the lag screw fracture site and the distal locking screw. When this was found to be adequate, the guide system was removed. Final x-rays were obtained. The wounds were copiously irrigated with normal saline. These were closed in a layered fashion with 0 Vicryl followed by 2-0 Vicryl followed by skin luis. The incisions were again injected with Marcaine 0.25% with epinephrine. Xeroform, 4 x 4's, ABDs and Tegaderm were applied to cover the wound. The patient was returned to a supine position. The patient was taken to recovery room in satisfactory condition. SPONGE AND NEEDLE COUNT: Correct. ESTIMATED BLOOD LOSS: 200 mL. SPECIMENS: None. DRAINS: None. PACKING: None. IMPLANTS: Synthes T1, TFN nail 11 mm x 130 degrees x 170 mm. A 0.5 x 40 mm distal locking screw. An 11 mm x 100 mm T1 helical blade. FINDINGS: Nondisplaced intertrochanteric fracture, right hip. COMPLICATIONS: None. [place], [place] OPERATIVE NOTE NAME: AHMET ADKINS UNIT #: [id number] ROOM: 508 DOCTOR: BRADY TAN DO BIRTHDATE: [birth year] BRADY TAN DO CM:OPRECORD:OPERATIVE NOTE [id number] BRADY TAN DO 06/22/17 1416 interface
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
[~2017-06-20 17:18] MED LIST: ALLOPURINOL100 MG PO; ARICEPT5 M1 PO; B121000 MCG/1 IM; COLACE100 MG PO; COUMADIN3 M1 PO; CYCLOBENZAPRINE5 M3 PO; DULCOLAX5 M1 PO; DULE1ARO1 INH; DULOXETINE HCL30 MG PO; FLOMAX0.4 MG PO; GUAIFENESIN600 MG PO; LACTULOSE20 GM/30 M PO; LASIX40 MG PO; LASIX80 MG PO; NAMENDA-5 PO; NEURONTIN600 MG PO; NYSTATIN1 EAC5 T; OMEPRAZOLE20 M2 PO; PALIPERIDONE ER3 MG PO; PAXIL30 M2 PO; PERCOCET 7.5-31 EACH PO; POTASSIUM CHLO20 ME4 PO; PROAIR HFA8.5 GM INH; RIVASTIGMINE1 EACH T; SILTUSSIN100 MG/52 PO; Synthroid,Levo25 MCG PO; TOPICORT60 G1 T; TYLENOL EXTRA500 MG PO; VITAMIN D310000 UNI1 PO
[2017-06-20 17:30] VITALS: BP 109/71
[2017-06-20 20:45] VITALS: BP 138/72
[2017-06-20 21:00] VITALS: BP 138/80
[2017-06-20 21:30] VITALS: BP 140/74
[2017-06-21] VITALS (12 sets, daily range): BP systolic 116–174; BP diastolic 67–83
[2017-06-21 06:17] LABS: BASO % 0.4 % (0.0-1.0); EOS # 0.1 10*3/uL (0.0-0.4); EOS % 2.2 % (1.0-4.0); HEMATOCRIT 36.5 % (42.0-52.0); HEMOGLOBIN 12.3 g/dl (14.0-18.0); LYMPH # 1.2 10*3/uL (1.3-4.4); LYMPH % 25.6 % (27.0-41.0); MEAN CELL VOLUME 105.2 fl (80.0-94.0); MEAN CORPUSCULAR HGB 35.4 pg (27.0-31.0); MEAN CORPUSCULAR HGB CONC 33.7 g/dl (33.0-37.0); MEAN PLATELET VOLUME 10.7 fl (9.6-12.3); MONO # 0.3 10*3/uL (0.1-1.0); MONO % 6.5 % (3.0-9.0); NEUT % 65.1 % (47.0-73.0); PLATELET COUNT AUTOMATED 124 10*3/uL (130-400); RED BLOOD COUNT 3.47 10*6/uL (4.50-5.90); RED CELL DISTRI WIDTH 12.9 % (0-14.5); WHITE BLOOD COUNT 4.6 10*3/uL (4.8-10.8)
[2017-06-21 06:45] LABS: ALKALINE PHOSPHATASE 135 U/L (45-117); BUN 13 mg/dl (7-24); CHLORIDE 104 mmol/L (98-107); CREATININE 0.96 mg/dL (0.70-1.30); FREE T4 0.92 ng/dl (0.76-1.46); PHOSPHOROUS 2.8 mg/dL (2.5-4.9); POTASSIUM 3.4 mmol/L (3.5-5.1); SGOT/AST 32 IU/L (3-35); SGPT/ALT 30 U/L (12-78); SODIUM 142 mmol/L (136-145); TOTAL PROTEIN 6.5 gm/dL (6.4-8.2)
[2017-06-21 06:46] LABS: ACT PARTIAL THROMBO TIME 32.6 SECONDS (20.8-31.5); INTERNATIONAL NORM RATIO 1.9 (2.0-3.5)
[2017-06-21 11:38] LABS: INTERNATIONAL NORM RATIO 1.6 (2.0-3.5)
[2017-06-21 13:47] LABS: INTERNATIONAL NORM RATIO 1.5 (2.0-3.5)
[2017-06-22] VITALS: BP 125/78
[2017-06-22 07:31] LABS: CHLORIDE 108 mmol/L (98-107); POTASSIUM 3.6 mmol/L (3.5-5.1); SODIUM 142 mmol/L (136-145)
[2017-06-22 07:37] LABS: ALBUMIN 2.7 gm/dl (3.1-4.5); ALKALINE PHOSPHATASE 146 U/L (45-117); BUN 14 mg/dl (7-24); CREATININE 0.82 mg/dL (0.70-1.30); SGOT/AST 31 IU/L (3-35); SGPT/ALT 25 U/L (12-78); TOTAL PROTEIN 6.3 gm/dL (6.4-8.2)
[2017-06-22 07:50] LABS: BASO % 0.3 % (0.0-1.0); EOS # 0.1 10*3/uL (0.0-0.4); HEMATOCRIT 33.9 % (42.0-52.0); HEMOGLOBIN 11.5 g/dl (14.0-18.0); LYMPH # 1.1 10*3/uL (1.3-4.4); MEAN CELL VOLUME 102.7 fl (80.0-94.0); MEAN CORPUSCULAR HGB 34.8 pg (27.0-31.0); MEAN CORPUSCULAR HGB CONC 33.9 g/dl (33.0-37.0); MEAN PLATELET VOLUME 11.3 fl (9.6-12.3); MONO # 0.6 10*3/uL (0.1-1.0); MONO % 9.6 % (3.0-9.0); NEUT % 69.9 % (47.0-73.0); PLATELET COUNT AUTOMATED 122 10*3/uL (130-400); RED CELL DISTRI WIDTH 12.5 % (0-14.5); WHITE BLOOD COUNT 5.8 10*3/uL (4.8-10.8)
[2017-06-22 07:56] LABS: INTERNATIONAL NORM RATIO 1.3 (2.0-3.5)
[2017-06-22 08:00] VITALS: BP 135/74
[2017-06-22 12:00] VITALS: BP 130/80
[2017-06-22 16:00] VITALS: BP 158/99
[2017-06-22 18:00] VITALS: BP 152/82
[2017-06-22 20:00] VITALS: BP 153/88
[2017-06-23] VITALS: BP 122/84
[2017-06-23 06:51] LABS: BASO % 0.3 % (0.0-1.0); EOS % 0.1 % (1.0-4.0); HEMATOCRIT 37.1 % (42.0-52.0); HEMOGLOBIN 12.7 g/dl (14.0-18.0); LYMPH # 0.8 10*3/uL (1.3-4.4); LYMPH % 10.5 % (27.0-41.0); MEAN CELL VOLUME 102.5 fl (80.0-94.0); MEAN CORPUSCULAR HGB 35.1 pg (27.0-31.0); MEAN CORPUSCULAR HGB CONC 34.2 g/dl (33.0-37.0); MEAN PLATELET VOLUME 10.9 fl (9.6-12.3); MONO # 0.6 10*3/uL (0.1-1.0); MONO % 8.4 % (3.0-9.0); NEUT % 80.4 % (47.0-73.0); PLATELET COUNT AUTOMATED 140 10*3/uL (130-400); RED BLOOD COUNT 3.62 10*6/uL (4.50-5.90); RED CELL DISTRI WIDTH 12.6 % (0-14.5); WHITE BLOOD COUNT 7.5 10*3/uL (4.8-10.8)
[2017-06-23 06:57] LABS: INTERNATIONAL NORM RATIO 1.2 (2.0-3.5)
[2017-06-23 07:05] LABS: BUN 18 mg/dl (7-24); CHLORIDE 104 mmol/L (98-107); CREATININE 0.88 mg/dL (0.70-1.30); POTASSIUM 3.3 mmol/L (3.5-5.1); SODIUM 141 mmol/L (136-145)
[2017-06-23 08:00] VITALS: BP 134/78
[2017-06-23 12:00] VITALS: BP 132/76
[2017-06-23 16:00] VITALS: BP 119/70
[2017-06-23 20:00] VITALS: BP 126/69
[2017-06-24] VITALS: BP 118/67
[2017-06-24 06:34] LABS: BASO % 0.3 % (0.0-1.0); EOS # 0.2 10*3/uL (0.0-0.4); EOS % 2.5 % (1.0-4.0); HEMATOCRIT 35.3 % (42.0-52.0); HEMOGLOBIN 12.1 g/dl (14.0-18.0); LYMPH # 0.9 10*3/uL (1.3-4.4); LYMPH % 15.5 % (27.0-41.0); MEAN CORPUSCULAR HGB CONC 34.3 g/dl (33.0-37.0); MEAN PLATELET VOLUME 10.9 fl (9.6-12.3); MONO # 0.5 10*3/uL (0.1-1.0); MONO % 7.6 % (3.0-9.0); NEUT # 4.5 10*3/uL (2.3-7.9); NEUT % 73.6 % (47.0-73.0); PLATELET COUNT AUTOMATED 128 10*3/uL (130-400); RED BLOOD COUNT 3.46 10*6/uL (4.50-5.90); RED CELL DISTRI WIDTH 12.5 % (0-14.5); WHITE BLOOD COUNT 6.1 10*3/uL (4.8-10.8)
[2017-06-24 07:05] LABS: BUN 20 mg/dl (7-24); CHLORIDE 104 mmol/L (98-107); CREATININE 0.79 mg/dL (0.70-1.30); POTASSIUM 3.2 mmol/L (3.5-5.1); SODIUM 140 mmol/L (136-145)
[2017-06-24 07:07] LABS: INTERNATIONAL NORM RATIO 1.2 (2.0-3.5)
[2017-06-24 08:00] VITALS: BP 116/77
[2017-06-24 12:00] VITALS: BP 134/73
[2017-06-24 16:00] VITALS: BP 144/83
[2017-06-24 20:00] VITALS: BP 113/71
[2017-06-25] VITALS: BP 134/78
[2017-06-25 07:10] LABS: BASO % 0.4 % (0.0-1.0); EOS # 0.1 10*3/uL (0.0-0.4); EOS % 2.6 % (1.0-4.0); HEMATOCRIT 34.1 % (42.0-52.0); LYMPH % 20.7 % (27.0-41.0); MEAN CELL VOLUME 102.4 fl (80.0-94.0); MEAN CORPUSCULAR HGB CONC 35.2 g/dl (33.0-37.0); MEAN PLATELET VOLUME 10.4 fl (9.6-12.3); MONO # 0.4 10*3/uL (0.1-1.0); MONO % 7.8 % (3.0-9.0); NEUT # 3.4 10*3/uL (2.3-7.9); NEUT % 68.3 % (47.0-73.0); PLATELET COUNT AUTOMATED 133 10*3/uL (130-400); RED BLOOD COUNT 3.33 10*6/uL (4.50-5.90); RED CELL DISTRI WIDTH 12.6 % (0-14.5)
[2017-06-25 07:23] LABS: INTERNATIONAL NORM RATIO 1.2 (2.0-3.5)
[2017-06-25 07:24] LABS: BUN 20 mg/dl (7-24); CHLORIDE 103 mmol/L (98-107); POTASSIUM 3.5 mmol/L (3.5-5.1); SODIUM 140 mmol/L (136-145)
[2017-06-25 08:00] VITALS: BP 110/90
[2017-06-25 12:00] VITALS: BP 125/78
[2017-06-25 16:00] VITALS: BP 126/87
[2017-06-25 20:00] VITALS: BP 133/82
[2017-06-26] VITALS: BP 141/69
[2017-06-26 06:49] LABS: BASO % 0.4 % (0.0-1.0); EOS # 0.1 10*3/uL (0.0-0.4); HEMATOCRIT 34.3 % (42.0-52.0); LYMPH # 1.1 10*3/uL (1.3-4.4); LYMPH % 21.3 % (27.0-41.0); MEAN CELL VOLUME 101.8 fl (80.0-94.0); MEAN CORPUSCULAR HGB 35.6 pg (27.0-31.0); MEAN PLATELET VOLUME 10.3 fl (9.6-12.3); MONO # 0.4 10*3/uL (0.1-1.0); MONO % 8.5 % (3.0-9.0); NEUT # 3.4 10*3/uL (2.3-7.9); NEUT % 67.6 % (47.0-73.0); PLATELET COUNT AUTOMATED 154 10*3/uL (130-400); RED BLOOD COUNT 3.37 10*6/uL (4.50-5.90); RED CELL DISTRI WIDTH 12.8 % (0-14.5)
[2017-06-26 07:14] LABS: BUN 17 mg/dl (7-24); CHLORIDE 102 mmol/L (98-107); CREATININE 0.88 mg/dL (0.70-1.30); POTASSIUM 3.8 mmol/L (3.5-5.1); SODIUM 140 mmol/L (136-145)
[2017-06-26 07:18] LABS: INTERNATIONAL NORM RATIO 1.2 (2.0-3.5)
[2017-06-26 08:00] VITALS: BP 144/86
[2017-06-26 12:00] VITALS: BP 134/84
[2017-06-26] MEDS ORDERED: NORCO 7.5-3251 EACH PO (12:50)
[2017-06-26 16:00] VITALS: BP 126/74
[2017-06-26 20:00] VITALS: BP 136/84; BP 161/84
[2017-06-26 23:22] LABS: BILIRUBIN NEGATIVE (NEGATIVE); BLOOD NEGATIVE (NEGATIVE); CLARITY SL CLOUDY (CLEAR); COLOR YELLOW (YELLOW); GLUCOSE NEGATIVE (NEGATIVE); KETONE NEGATIVE (NEGATIVE); LEUKO ESTERASE NEGATIVE (NEGATIVE); NITRITE NEGATIVE (NEGATIVE)
[2017-06-26 23:30] LABS: BACTERIA 2+; WBC 0-2 wbc/hpf (0-5)
[2017-06-27] VITALS: BP 161/88
[2017-06-27 04:00] VITALS: BP 148/90
[2017-06-27 07:06] LABS: BASO % 0.4 % (0.0-1.0); EOS # 0.1 10*3/uL (0.0-0.4); EOS % 3.1 % (1.0-4.0); HEMOGLOBIN 11.3 g/dl (14.0-18.0); LYMPH # 0.9 10*3/uL (1.3-4.4); LYMPH % 20.7 % (27.0-41.0); MEAN CELL VOLUME 102.5 fl (80.0-94.0); MEAN CORPUSCULAR HGB 35.1 pg (27.0-31.0); MEAN CORPUSCULAR HGB CONC 34.2 g/dl (33.0-37.0); MEAN PLATELET VOLUME 10.4 fl (9.6-12.3); MONO # 0.4 10*3/uL (0.1-1.0); NEUT % 66.6 % (47.0-73.0); PLATELET COUNT AUTOMATED 145 10*3/uL (130-400); RED BLOOD COUNT 3.22 10*6/uL (4.50-5.90); RED CELL DISTRI WIDTH 12.7 % (0-14.5); WHITE BLOOD COUNT 4.6 10*3/uL (4.8-10.8)
[2017-06-27 07:14] LABS: INTERNATIONAL NORM RATIO 1.4 (2.0-3.5)
[2017-06-27 08:00] VITALS: BP 118/78
[2017-06-27 12:00] VITALS: BP 122/76
[2017-06-27 16:00] VITALS: BP 138/55
[2017-06-28] VITALS: BP 118/76
[2017-06-28 07:23] LABS: INTERNATIONAL NORM RATIO 1.7 (2.0-3.5)
[2017-06-28 08:00] VITALS: BP 112/90
[2017-06-28 12:00] VITALS: BP 110/77
[2017-06-28] MEDS ORDERED: ENOXAPARIN40 MG/0.2 SC (12:46)
[2017-06-28] MEDS ORDERED: COUMADIN1 M1 PO (12:46)
[2017-06-28] MEDS ORDERED: CITALOPRAM HYDR20 MG PO (12:46)
== END 2017-06-28 14:56 | DRG 481 ==
LOC: 5E 17:18
PROVIDERS: Anesthesiology; Family Medicine; Internal Medicine; Orthopaedic Surgery; ADMIT Internal Medicine
PROC: 30233L1 Transfusion of Nonautologous Fresh Plasma into Peripheral Vein, Percutaneous Approach (ICD-10-PCS; principal; 2017-06-20)
PROC: 30233K1 Transfusion of Nonautologous Frozen Plasma into Peripheral Vein, Percutaneous Approach (ICD-10-PCS; principal; 2017-06-20)
PROC: 0QH636Z Insertion of Intramedullary Internal Fixation Device into Right Upper Femur, Percutaneous Approach (ICD-10-PCS; 2017-06-21)
DX: S72.144A Nondisplaced intertrochanteric fracture of right femur, initial encounter for closed fracture (principal); E44.0 Moderate protein-calorie malnutrition; F33.9 Major depressive disorder, recurrent, unspecified; I48.2 Chronic atrial fibrillation; Z68.33 Body mass index [BMI] 33.0-33.9, adult; I10 Essential (primary) hypertension; E03.9 Hypothyroidism, unspecified; E55.9 Vitamin D deficiency, unspecified; D53.9 Nutritional anemia, unspecified; Z66 Do not resuscitate; Z51.5 Encounter for palliative care; R73.9 Hyperglycemia, unspecified; R74.0 Nonspecific elevation of levels of transaminase and lactic acid dehydrogenase [LDH]; N40.0 Benign prostatic hyperplasia without lower urinary tract symptoms; E78.5 Hyperlipidemia, unspecified; E66.9 Obesity, unspecified; E87.6 Hypokalemia; D72.810 Lymphocytopenia; M54.9 Dorsalgia, unspecified; G89.29 Other chronic pain; W18.39XA Other fall on same level, initial encounter; Y93.89 Activity, other specified; Y92.89 Other specified places as the place of occurrence of the external cause; Y99.8 Other external cause status; Z88.2 Allergy status to sulfonamides; Z88.8 Allergy status to other drugs, medicaments and biological substances; Z84.89 Family history of other specified conditions; Z79.899 Other long term (current) drug therapy

== ENCOUNTER → 2017-08-09 | Outpatient (CLI) | payer MEDICARE ==
[~2017-08-09] MED LIST changes: +CITALOPRAM HYDR20 MG PO; +COUMADIN1 M1 PO; +ENOXAPARIN40 MG/0.2 SC; +NORCO 7.5-3251 EACH PO
== END | disposition home or self-care (01) ==
LOC: ORTHO 02:55
DX: Z47.89 Encounter for other orthopedic aftercare (principal); S72.141D Displaced intertrochanteric fracture of right femur, subsequent encounter for closed fracture with routine healing; X58.XXXD Exposure to other specified factors, subsequent encounter